=== PATIENT | male | born 1975 | race Caucasian/White ===

== ENCOUNTER 2022-04-30 06:39 | Emergency (ER) | payer BC ==
[2022-04-30 07:13] LABS: ALT (SGPT) 130 U/L (8-55); AST (SGOT) 201 U/L (5-34); Albumin 4.5 g/dL (3.5-5.0); Alkaline Phosphatase 74 U/L (40-110); Anion Gap 17 mmol/L (10-20); BUN (Urea Nitrogen) 13 mg/dL (8.9-20.6); Bilirubin, Total 1.6 mg/dL (0.2-1.2); Calc. Creatinine Clearance 0 mL/min (70-130); Calcium 9.2 mg/dL (7.8-10.44); Carbon Dioxide 22 mmol/L (22-29); Chloride 104 mmol/L (98-107); Estimated GFR 99; Globulin 2.9 g/dL (2.4-3.5); Glucose 173 mg/dL (70-105); Potassium 4.2 mmol/L (3.5-5.1); Protein, Total 7.4 g/dL (6.0-8.3); Sodium 139 mmol/L (136-145)
[2022-04-30] MEDS ORDERED: Ondansetron PF 4 MG/2 ML Vial ONE ×2 (07:18→12:02)
[2022-04-30] MEDS ORDERED: Fentanyl 100 MCG/2 ML VIAL ONE (07:19)
[2022-04-30 07:21] LABS: #Basophils 0.1 10x3/uL (0.0-0.2); #Eosinphils 0.1 10x3/uL (0.0-0.5); #Monocytes 1.3 10x3/uL (0.0-1.1); #Neutrophils 8.8 10x3/uL (1.5-8.4); %Basophils 0.4 % (0.0-2.0); %Eosinophils 0.7 % (0.0-6.0); %Lymphocytes 15.3 % (18.0-47.0); %Monocytes 10.6 % (0.0-10.0); %Neutrophils 72.8 % (40.0-75.0); Mean Corpuscular HGB CONC 34.8 g/dL (32.0-36.0); Mean Corpuscular Hemoglobin 32.5 pg (27.0-33.0); Mean Corpuscular Volume 93.5 fl (81.2-95.1); Platelet Count 303 10x3/uL (150-450); RBC Distribution Width 13.2 % (11.5-14.5); Red Blood Cell (RBC) Count 5.23 10x6/uL (4.32-5.72); White Blood Cell (WBC) Count 12.1 10x3/uL (3.5-10.5)
[2022-04-30] MEDS ORDERED: Lidocaine Viscous Sol 2% 15 ml UD Cup ONE (07:41)
[2022-04-30] MEDS ORDERED: Mag-Al Plus 1200 MG/1200 MG/120 MG/30 ML UDCUP ONE (07:41)
[2022-04-30] MEDS ORDERED: Iopamidol 300 61% 100 ML VIAL FS ONE (08:49)
[2022-04-30] MEDS ORDERED: Morphine 4 MG/ML VIAL ONE (09:47)
[2022-04-30] MEDS ORDERED: Piperacillin/Tazobactam 4.5 GM VIAL ONE (11:46)
== END 2022-04-30 12:11 | disposition short-term general hospital (02) ==
LOC: EDSEX 06:39 → CSHERS 06:39
DX: K85.90 Acute pancreatitis without necrosis or infection, unspecified (principal); K21.9 Gastro-esophageal reflux disease without esophagitis; Z79.899 Other long term (current) drug therapy
CPT/HCPCS: 71045; 74177; 76705; 80053; 83690; 84484; 85025; 93005; 96361; 96374; 96375; J2270; J2405; J2543; J3010; J7620; Q9967